=== PATIENT | female | born 1995 | race Caucasian/White ===

== ENCOUNTER 2025-07-26 11:17 | Emergency (ER) | payer MEDICAID ==
[~2025-07-26] VITALS: Ht 152.4 cm; Wt 66.0 kg
[2025-07-26 11:29] VITALS: O2SAT 99
[2025-07-26] MEDS: KETOROLAC 30MG/ML VIAL IM ONE (11:50)
[2025-07-26 12:29] LABS: CLARITY URINE CLOUDY (CLEAR); COLOR URINE YELLOW (YELLOW); GLUCOSE URINE NEGATIVE (NEGATIVE); KETONES URINE NEGATIVE (NEGATIVE); LEUKOCYTE ESTERASE URINE NEGATIVE (NEGATIVE); NITRITE URINE NEGATIVE (NEGATIVE); OCCULT BLOOD URINE 2+ (NEGATIVE); PH URINE 6.0 (4.5-8.0); PROTEIN URINE TRACE (NEGATIVE); SPECIFIC GRAVITY URINE 1.024 (1.005-1.030); UROBILINOGEN URINE 0.2 E.U./dL (0.2-1.0)
[2025-07-26 12:52] LABS: SQUAMOUS EPITHELIAL CELL URINE 3+ /lpf (RARE/1+)
[2025-07-26 12:53] LABS: HYALINE CASTS URINE 0-5 /lpf; MUCUS URINE TRACE /lpf (< = 2+)
[2025-07-26 12:54] LABS: RBC URINE 15-25 /hpf (0-2)
[2025-07-26 12:55] LABS: BACTERIA URINE 2+
[2025-07-26 12:55] LABS: BASOPHILS % 0.7 % (0.0-2.0); EOSINOPHILS % 0.8 % (0.0-5.0); HEMATOCRIT. 42.6 % (36.0-48.0); HEMOGLOBIN. 14.9 g/dL (12.0-16.0); LYMPHOCYTES % 23.6 % (20.0-50.0); MEAN PLATELET VOLUME 7.7 fl (7.4-10.4); MONOCYTES % 7.4 % (2.0-8.0); NEUTROPHILS % 67.5 % (40.0-76.0); PLATELET 328 x1000/uL (130-400); RED BLOOD CELL COUNT 4.95 mill/uL (4.2-5.4); RED CELL DISTRIBUTION WIDTH 13.0 % (11.6-14.6)
[2025-07-26 13:09] LABS: CREATININE 0.6 mg/dL (0.6-1.0); UREA NITROGEN BLOOD 8 mg/dL (9-23)
[2025-07-26 13:11] LABS: ASPARTATE AMINOTRANSFERASE 21 IU/L (<34); BILIRUBIN DIRECT 0.1 mg/dL (<=3.0)
[2025-07-26 13:12] LABS: BILIRUBIN TOTAL 0.8 mg/dL (0.1-1.0); PROTEIN TOTAL 7.8 g/dL (6.0-8.3)
[2025-07-26 13:15] LABS: HCG SCREEN NEGATIVE
[2025-07-26 13:35] VITALS: TEMP 37.4
[2025-07-26] MEDS ORDERED: IBUP-1455 MT (13:44)
[2025-07-26] MEDS ORDERED: TAMS-54 MT (13:44)
[2025-07-26] MEDS ORDERED: CEFP200T14 MT (13:44)
[2025-07-26] MEDS: HYDROCODONE/ACETAMINOPHEN 5/325MG TABLET PO ONE (14:13)
[2025-07-26 14:20] VITALS: BP 111/81; PULSE 67; RESP 16; O2SAT 100
== END 2025-07-26 14:21 | disposition home or self-care (01) ==
LOC: ER 11:17
DX: N20.0 Calculus of kidney (principal); N39.0 Urinary tract infection, site not specified; Z90.49 Acquired absence of other specified parts of digestive tract; Z79.899 Other long term (current) drug therapy
CPT/HCPCS: 99285; 76700; 80076; 80048; 81003; 81025; 84703; 83690; 85025; 36415; 96372; J1885